=== PATIENT | female | born 2000 | race Caucasian/White ===

== ENCOUNTER 2022-06-30 16:58 | Emergency (ER) | payer OTHER, SELFPAY ==
--- NOTE | ~2022-06-30 | CT_ITS ---
EXAMINATION: CT abdomen pelvis wo con DATE: 06/30/2022 17:37 INDICATION: Right flank pain TECHNIQUE: Computed tomography (CT) of the abdomen and pelvis was performed without intravenous contr ast. The dose-length product (DLP) was 219.11 mGy-cm. Automated exposure control and iterative recons truction technique were employed. COMPARISON: None FINDINGS: The lung bases are clear. The heart size is normal. The liver, spleen, pancreas, gallbladde r, and adrenal glands are normal. There is a 3 mm stone at the right ureterovesicular junction which causes mild right hydroureteronephrosis. The left kidney is unremarkable. No pathologically enlarged abdominal or pelvic lymph nodes are identified. No free intraperitoneal gas or evidence of bowel obst ruction. The appendix is normal. IMPRESSION: 1. 3 mm stone at the right ureterovesicular junction causing mild hydroureteronephrosis. Reviewed, dictated and finalized at location F. IMPRESSION: 1. 3 mm stone at the right ureterovesicular junction causing mild hydroureteron ephrosis.
--- NOTE | 2022-06-30 17:07 | ED.FEMALEGU ---
HPI - Female Genitourinary General Chief complaint: Back Pain/Injury <BAKARI Koenig Last Filed: 06/30/22 18:23> Stated complaint: r flank pain <Daria Wilder PA-C - Last Filed: 06/30/22 18:23> Time Seen by Provider: 06/30/22 16:59 <BAKARI Koenig Last Filed: 06/30/22 18:23> History of Present Illness HPI Narrative: Patient is a 21-year-old healthy female here due to evaluation of right flank pain x1 day. Patient states the pain is intermittent and severe in nature, coming in waves without warning. When the pain is there she feels nauseated and has sweats. Denies history of previous similar sensation. She took an Aleve with moderate relief of her symptoms. No history of kidney stones. No dysuria, urgency, frequency, hematuria. <Daria Wilder PA-C - Last Filed: 06/30/22 18:23> Related Data Allergies/Adverse reactions: Allergies Allergy/AdvReac Type Severity Reaction Status Date / Time No Known Drug Allergies Allergy Mild Verified 06/30/10 19:14 <BAKARI Koenig Last Filed: 06/30/22 18:23> Review of Systems Review of Systems: Gen.: Denies fevers or chills Eyes: Denies eye pain or visual change ENT: Denies congestion Respiratory: Denies shortness of breath or cough CV: Denies chest pain or palpitations GI: Denies abdominal pain nausea, emesis or diarrhea denies burning, urgency, frequency or hematuria Musculoskeletal: Reports flank pain Neuro: Denies numbness, tingling, weakness or focal weakness Skin: Denies rash Except as documented, all other systems reviewed and negative <BAKARI Koenig Last Filed: 06/30/22 18:23> Exam Narrative: APPEARANCE: Uncomfortable. Head: Normocephalic and atraumatic. EYES: PERRLA/EOMI, conjunctivae clear NOSE: No nasal drainage EARS: External ear normal in appearance THROAT: Oropharynx is clear. Mucous membranes are moist. NECK: Supple. No adenopathy, no masses. RESPIRATORY: Airway patent, respirations nonlabored. Clear to auscultation bilaterally, no rales, rhonchi, wheezing. CARDIOVASCULAR: Regular rate and rhythm without murmurs, rubs, or gallops. ABDOMINAL: Normoactive bowel sounds. Soft, nontender, nondistended. No rebound tenderness or guarding. MUSCULOSKELETAL: Extremities are warm and well-perfused. Moves all extremities well. No edema. NEURO: Normal speech. No focal neurologic deficits. SKIN: Skin is warm and dry. No rashes. PSYCHIATRIC: Normal affect/mood.. <BAKARI Koenig Last Filed: 06/30/22 18:23> Course [employer]/PA Physician Supervision Patient was seen by both the PA and myself. I made a full medical decision making component of the visit. Patient presents with cute onset of abdominal pain today has a kidney stone urine is mildly positive did discuss case with urology they feel the patient may be discharged home with antibiotics discussed with patient strict return precautions given will discharge at this time <Rich Osuna DO - Last Filed: 06/30/22 18:25> Vital Signs Vital signs: Vital Signs Pulse Rate 71 06/30/22 17:09 Respiratory Rate 16 06/30/22 17:09 Blood Pressure 135/83 06/30/22 17:09 Pulse Oximetry 99 06/30/22 17:09 Oxygen Delivery Room Air 06/30/22 17:09 Pulse Rate 71 06/30/22 17:09 Respiratory Rate 16 06/30/22 17:09 Blood Pressure 135/83 06/30/22 17:09 Pulse Oximetry 99 06/30/22 17:09 Oxygen Delivery Room Air 06/30/22 17:09 <BAKARI Koenig Last Filed: 06/30/22 18:23> Vital Signs Pulse Rate 71 06/30/22 17:09 Respiratory Rate 16 06/30/22 17:09 Blood Pressure 135/83 06/30/22 17:09 Pulse Oximetry 99 06/30/22 17:09 Oxygen Delivery Room Air 06/30/22 17:09 Pulse Rate 71 06/30/22 17:09 Respiratory Rate 16 06/30/22 17:09 Blood Pressure 135/83 03/31/23 17:09 Pulse Oximetry 99 06/30/22 17:09 Oxygen Delivery Room Air 06/30/22 17:09
[2022-06-30 17:09] VITALS: BP 135/83; PULSE 71; RESP 16; O2SAT 99
[2022-06-30 17:23] LABS: Basophils Percent Auto 0.3 % (0.2-1.2); Eosinophils Absolute Auto 0.1 K/mm3 (0-0.3); Eosinophils Percent Auto 0.8 % (0-4.4); Hematocrit 38.7 % (37.0-47.0); Hemoglobin 13.9 g/dL (12.0-15.0); Immature Granulocyte Absolute 0.05 K/mm3 (0.00-0.031); Immature Granulocyte Percent A 0.4 % (0-0.5); Lymphocytes Absolute Auto 2.06 K/mm3 (0.9-3.2); Lymphocytes Percent Auto 14.5 % (18.3-44.2); Mean Corpuscular HGB Conc 35.9 g/dl (32-36); Mean Corpuscular Hemoglobin 31.9 pg (26-34); Mean Corpuscular Volume 88.8 fl (80-100); Mean Platelet Volume 9.4 fl (7.4-10.4); Monocytes Absolute Auto 0.6 K/mm3 (0.1-0.6); Monocytes Percent Auto 4.1 % (2.6-8.5); Neutrophils Absolute Auto 11.4 K/mm3 (1.3-6.7); Neutrophils Percent Auto 79.9 % (45.5-73.1); Platelet Count Result 199 k/mm3 (150-375); Red Blood Count 4.36 M/mm3 (4.2-5.4); Red Cell Distribution Width 12.3 % (11.5-14.5); White Blood Count 14.2 K/mm3 (4.5-10.0)
[2022-06-30 17:34] LABS: Anion Gap 10 mmol/L (8-16); Blood Urea Nitrogen 14 mg/dL (8-21); Calcium 9.1 mg/dL (8.9-10.7); Carbon Dioxide 24 mmol/L (22-30); Chloride 105 mmol/L (98-107); Estimated CRCL calculation 66 ml/min; Estimated Glomerular Filt Rate > 60; Glucose 101 mg/dL (65-110); Potassium 4.1 mmol/L (3.4-5.0); Sodium 139 mmol/L (134-143)
[2022-06-30 17:39] LABS: Appearance Urine Turbid (Clear); Bacteria Urine 4+ /hpf; Bilirubin Urine Negative (Negative); Blood Urine 3+ (Negative); Calcium Oxalate Crystals Urine Present /hpf; Color Urine Dark Yellow (Yellow); Glucose Urine UA Negative (Negative); Ketones Urine 1+ mg/dL (Negative); Leukocyte Esterase Ur Trace LEU/UL (Negative); Need Manual Microscopic Reviewed; Nitrate Urine Negative (Negative); Non Pathogenic Casts 0-2; Protein Urine 1+ mg/dL (Negative); RBC Urine 21-50 /hpf (0-2); Specific Grav Ur 1.033 (1.001-1.035); Squamous Epithelial Cell Urine Many /hpf (Few); pH Urine 5.5 (5.0-9.0)
[2022-06-30 17:42] LABS: WBC Urine 21-30 /hpf (0-3)
[2022-06-30] MEDS: ONDANSETRON HCL ODT 4 MG TABLET PO (17:47)
[2022-06-30] MEDS: HYDROcodone/acetaminophen (*CRX) 5-325 MG TABLET 1 TAB PO (17:47)
[2022-06-30 18:04] LABS: Add Urine Microscopic? YES
[2022-06-30] MEDS: SODIUM CHLORIDE 0.9% IV 1,000 ML 999 ML IV CONT (18:13)
[2022-06-30 18:45] VITALS: TEMP 37.2
== END 2022-06-30 19:20 | disposition home or self-care (01) ==
PROVIDERS: Emergency Provider Physician Assistant; PCP Family Medicine
DX: N20.1 Calculus of ureter (principal)
CPT/HCPCS: 36415; 74176; 80048; 81001; 81025; 85025; 87086; 87088; 96365; 99284; A9270; J0696; J7030